=== PATIENT | female | born 1990 | race Caucasian/White ===

== ENCOUNTER → 2018-06-13 | Outpatient (CLI) | payer OTHER ==
--- NOTE | 2018-06-13 12:28 | RAD ---
Right breast ultrasound, 06/13/2018: History: Mastitis, possible abscess The right breast was carefully scanned. There is vague decreased echogenicity in the upper outer quadrant corresponding to the area of pain. This extends over an area measuring at least 3 cm. No discrete fluid collection is seen to suggest a drainable abscess. There is a 1.1 cm lobulated hypervascular nodule at the 9:00 location, approximately 5 cm from the nipple, compatible with an intramammary lymph node. A 14 x 7 mm hypoechoic nodule in the right axilla is probably a reactive lymph node. IMPRESSION: 1. Ill-defined hypoechoic process in the upper outer right breast compatible with the clinical impression of mastitis. No discrete abscess is seen. 2. Small adjacent intramammary lymph node at the 9:00 location. 3. Small right axillary lymph node which is probably reactive. 4. Underlying neoplasm cannot be excluded. Clinical and imaging follow-up is suggested.
== END | disposition home or self-care (01) ==
LOC: US 11:26
PROVIDERS: ATTEND Family Medicine
DX: N61.0 Mastitis without abscess (principal); N63.11 Unspecified lump in the right breast, upper outer quadrant
CPT/HCPCS: 76641